=== PATIENT | male | born 1985 | race Caucasian/White ===

== ENCOUNTER 2025-03-07 10:29 | Emergency (ER) | payer OTHER ==
[2025-03-07] MEDS ORDERED: CEFAZOLIN 2 GM VIAL ONE (10:44)
[2025-03-07] MEDS ORDERED: fentaNYL 50 mcg/mL 1 mL Vial ONE (10:44)
[2025-03-07 11:07] LABS: #Basophils 0.07 10x3/uL (0.0-0.2); #Eosinophils 0.11 10x3/uL (0.0-0.5); #Monocytes 0.59 10x3/uL (0.0-1.1); #Neutrophils 6.18 10x3/uL (1.5-8.4); %Basophils 0.8 % (0.0-2.0); %Eosinophils 1.2 % (0.0-6.0); %Lymphocytes 23.6 % (18.0-47.0); %Monocytes 6.5 % (0.0-10.0); %Neutrophils 67.6 % (40.0-75.0); Hematocrit 36.2 % (38.8-50.0); Mean Corpuscular HGB CONC 33.1 g/dL (32.0-36.0); Mean Corpuscular Hemoglobin 30.2 pg (27.0-33.0); Mean Platelet Volume 9.7 fL (7.4-10.4); Platelet Count 374 10x3/uL (150-450); RBC Distribution Width 11.9 % (11.5-14.5); Red Blood Cell (RBC) Count 3.98 10x6/uL (4.32-5.72); White Blood Cell (WBC) Count 9.14 10x3/uL (3.5-10.5)
[2025-03-07] MEDS ORDERED: Boostrix 0.5 ML (Tdap) VIAL (>/=7 yrs of age) ONE (11:17)
[2025-03-07] MEDS ORDERED: Morphine 4 MG/ML VIAL ONE ×2 (11:17→12:40)
[2025-03-07 11:22] LABS: PTT 24.5 sec (22.0-33.0); Prothrombin Time 11.4 sec (9.5-12.1)
[2025-03-07 11:25] LABS: ALT (SGPT) 13 U/L (Less than 45); AST (SGOT) 22 U/L (11-34); Albumin 4.2 g/dL (3.1-4.5); Alkaline Phosphatase 58 U/L (40-110); Anion Gap 11 mmol/L (10-20); BUN (Urea Nitrogen) 13 mg/dL (8.9-20.6); Bilirubin, Total 0.7 mg/dL (0.3-1.2); Calc. Creatinine Clearance 0 mL/min (70-130); Calcium 8.7 mg/dL (7.8-10.44); Carbon Dioxide 25 mmol/L (22-29); Chloride 104 mmol/L (98-107); Estimated GFR 106; Globulin 3.1 g/dL (2.4-3.5); Glucose 149 mg/dL (70-105); Potassium 3.3 mmol/L (3.5-5.1); Protein, Total 7.3 g/dL (6.0-8.3); Sodium 137 mmol/L (136-145)
[2025-03-07] MEDS ORDERED: Droperidol 5 MG/2 ML VIAL ONE (12:12)
[2025-03-07] MEDS ORDERED: Morphine 2 MG/ML VIAL ONE (12:40)
== END 2025-03-07 12:57 ==
LOC: CSHERS 10:29
DX: S82.252B Displaced comminuted fracture of shaft of left tibia, initial encounter for open fracture type I or II (principal); S82.452B Displaced comminuted fracture of shaft of left fibula, initial encounter for open fracture type I or II; W22.8XXA Striking against or struck by other objects, initial encounter
CPT/HCPCS: 36415; 80053; 85025; 85610; 85730; 86850; 86900; 86901; 90471; 90715; 96374; 96375; 96376; J1790; J2270; J2272; J3010

== ENCOUNTER 2025-05-14 11:12 | Outpatient (CLI) | payer SELFPAY | END 2025-05-14 11:13 | disposition home or self-care (01) | LOC: CSHWCC 11:12 | PROVIDERS: ATTEND Nurse Practitioner Family | DX: L97.821 Non-pressure chronic ulcer of other part of left lower leg limited to breakdown of skin (principal); L97.221 Non-pressure chronic ulcer of left calf limited to breakdown of skin | CPT/HCPCS: 11042 ==

== ENCOUNTER 2025-05-29 09:53 | Outpatient (CLI) | payer BC | END 2025-05-29 09:54 | disposition home or self-care (01) | LOC: CSHWCC 09:53 | PROVIDERS: ATTEND Nurse Practitioner Family | DX: L97.821 Non-pressure chronic ulcer of other part of left lower leg limited to breakdown of skin (principal); L97.221 Non-pressure chronic ulcer of left calf limited to breakdown of skin | CPT/HCPCS: 11042 ==

== ENCOUNTER 2025-06-05 09:49 | Outpatient (CLI) | payer BC | END 2025-06-05 09:50 | disposition home or self-care (01) | LOC: CSHWCC 09:49 | PROVIDERS: ATTEND Nurse Practitioner Family | DX: L97.221 Non-pressure chronic ulcer of left calf limited to breakdown of skin (principal); L97.821 Non-pressure chronic ulcer of other part of left lower leg limited to breakdown of skin | CPT/HCPCS: 11042; 99213; G0463 ==

== ENCOUNTER 2025-06-19 09:53 | Outpatient (CLI) | payer BC | END 2025-06-19 09:54 | disposition home or self-care (01) | LOC: CSHWCC 09:53 | PROVIDERS: ATTEND Nurse Practitioner Family | DX: L97.821 Non-pressure chronic ulcer of other part of left lower leg limited to breakdown of skin (principal); L97.221 Non-pressure chronic ulcer of left calf limited to breakdown of skin; L02.11 Cutaneous abscess of neck | CPT/HCPCS: 97597 ==

== ENCOUNTER 2025-06-26 09:50 | Outpatient (CLI) | payer BC | END 2025-06-26 09:51 | disposition home or self-care (01) | LOC: CSHWCC 09:50 | PROVIDERS: ATTEND Nurse Practitioner Family | DX: L97.821 Non-pressure chronic ulcer of other part of left lower leg limited to breakdown of skin (principal); L97.221 Non-pressure chronic ulcer of left calf limited to breakdown of skin; L02.11 Cutaneous abscess of neck | CPT/HCPCS: 99213; G0463 ==